=== PATIENT | female | born 1995 | race Hispanic/Latino ===

== ENCOUNTER 2017-09-08 15:03 | Observation (INO) | payer MEDICAID ==
[~2017-09-08] VITALS: Ht 154.9 cm; Wt 68.5 kg
[~2017-09-08 15:03] MED LIST: ACET1TAB12 PO; ESOM40CA54 PO
[2017-09-08 16:14] LABS: APPEARANCE,URINE Clear (CLEAR); BILIRUBIN,URINE Negative (NEGATIVE); COLOR,URINE Yellow (YELLOW); GLUCOSE, URINE (UA) Negative (NEGATIVE); KETONES,URINE Negative (NEGATIVE); LEUKOCYTE ESTERASE ,URINE Moderate (NEGATIVE); NITRATE,URINE Negative (NEGATIVE); OCCULT BLOOD,URINE Moderate (NEGATIVE); PROTEIN,URINE Negative (NEGATIVE); UROBILINOGEN,URINE 0.2 mg/dL (0.2-1.0)
[2017-09-08 16:22] LABS: BACTERIA,URINE None Seen /HPF (None Seen); SQUAMOUS EPITHELIAL CELL,UR 0-2 /LPF (0-2); WBC,URINE 0-1 /HPF (0-1)
== END 2017-09-08 16:55 | disposition home or self-care (01) ==
LOC: EDH 15:03 → LDH 15:04
DX: O26.893 Other specified pregnancy related conditions, third trimester (principal); R10.11 Right upper quadrant pain; O99.613 Diseases of the digestive system complicating pregnancy, third trimester; K59.00 Constipation, unspecified; Z3A.37 37 weeks gestation of pregnancy
CPT/HCPCS: 81001; 99285; G0378 ×2

== ENCOUNTER 2017-09-27 03:06 | Inpatient (IN) | payer MEDICAID ==
[~2017-09-27] VITALS: Ht 154.9 cm; Wt 69.9 kg
[2017-09-27] MEDS ORDERED: LACTATED RINGERS 1000ML 1,000 ML IV PRN (03:21)
[2017-09-27] MEDS ORDERED: EPHEDRINE SULFATE 50 MG/ML AMPULE IVP PRN ×2 (04:30→21:00)
[2017-09-27] MEDS ORDERED: NALOXONE HCL 0.4 MG/1 ML ML IV PRN (04:30)
[2017-09-27] MEDS ORDERED: LACTATED RINGERS 500 ML 500 ML IV PRN (04:30)
[2017-09-27] MEDS ORDERED: ROPIVACAINE 0.2%200ML EPIDURAL 200 ML EP SCH (04:30)
[2017-09-27] MEDS: MEPERIDINE-PF 50 MG/ML SYG IVP PRN ×2 (06:59→10:44)
[2017-09-27] MEDS: PROMETHAZINE HCL 25 MG/ML 1ML AMPULE IM PRN ×2 (07:00→22:51)
[2017-09-27] MEDS ORDERED: OXYTOCIN 10 USP UNITS/ML 20 UNIT in LACTATED RINGERS 1000ML 1,000 ML IV SCH (07:00)
[2017-09-27] MEDS ORDERED: LACTATED RINGERS 1000ML 1,000 ML IV ONE ×2 (07:34→19:55)
[2017-09-27] MEDS ORDERED: OXYTOCIN 10 USP UNITS/ML ONE ×2 (07:35→19:56)
[2017-09-27 07:52] LABS: HEMATOCRIT 34.1 % (36-48); MEAN CORPUSCULAR HEMOGLOBIN 29.9 pg (27.0-33.0); MEAN CORPUSCULAR VOLUME 87.9 fL (80-100); NUCLEATED RED BLOOD CELLS 0.1 % (0.0-0.19); PLATELET COUNT (AUTO) 275 K/uL (130-400); RED BLOOD CELL COUNT(AUTO) 3.88 MIL/uL (4.00-5.50); RED CELL DISTRIBUTION WIDTH 14.3 % (11.0-15.5); WHITE BLOOD COUNT (AUTO) 10.8 K/uL (4.8-10.8)
[2017-09-27] MEDS: OXYTOCIN-LR 20 UNITS/1000 ML 1,000 ML IV SCH (07:52)
[2017-09-27 08:06] LABS: RAPID PLASMA REAGIN NONREACTIVE (NONREACTIVE)
[2017-09-27] MEDS ORDERED: MEPERIDINE-PF 50 MG/ML SYG IVP SCH ×2 (10:30→12:15)
[2017-09-27] MEDS: PROMETHAZINE HCL 25 MG/ML 1ML AMPULE IM SCH (10:44)
[2017-09-27] MEDS ORDERED: PROMETHAZINE HCL 25 MG/ML 1ML AMPULE IM SCH (12:15)
[2017-09-27] MEDS: LACTATED RINGERS 1000ML 1,000 ML IV SCH (13:47)
[2017-09-27] MEDS ORDERED: CEFAZOLIN SODIUM 1 GM VIAL IVP PRN (18:30)
[2017-09-27] MEDS ORDERED: LACTATED RINGERS 1000ML 1,000 ML IV SCH (18:30)
[2017-09-27] MEDS ORDERED: CEFAZOLIN SODIUM 1 GM VIAL IVP ONE (18:55)
[2017-09-27] MEDS ORDERED: DURAMORPH PF1 MG/ML 10ML AMP IV ONE (18:59)
[2017-09-27] MEDS ORDERED: METHYLERGONOVINE MALEATE 0.2 MG/1 ML ML ONE (19:19)
[2017-09-27] MEDS ORDERED: OXYTOCIN-LR 20 UNITS/1000 ML 1,000 ML IV PRN (19:46)
[2017-09-27] MEDS ORDERED: CALDOLOR 800MG+NS 250ML 250 ML IV ONE (19:55)
[2017-09-27] MEDS ORDERED: DEXTROSE 5 %-0.45 % NACL 1,000 ML IV PRN (20:00)
[2017-09-27] MEDS ORDERED: LANOLIN 30GM OINTMENT TP PRN (20:00)
[2017-09-27] MEDS ORDERED: HYDROCODONE/ACETAMINOPHEN 5/325 MG TAB PO PRN ×4 (20:00→21:00)
[2017-09-27] MEDS ORDERED: BISACODYL 10 MG SUPP.RECT RC PRN (20:00)
[2017-09-27] MEDS ORDERED: PROMETHAZINE HCL 25 MG/ML 1ML AMPULE IM PRN ×2 (20:00→21:00)
[2017-09-27] MEDS ORDERED: DIPHENHYDRAMINE HCL 25 MG CAPSULE PO PRN (20:00)
[2017-09-27] MEDS ORDERED: SODIUM CHLORIDE 0.9% 10 ML VIAL IVP PRN (20:00)
[2017-09-27] MEDS ORDERED: ACETAMINOPHEN EXTRA STRENGTH 500 MG TABLET PO PRN (20:00)
[2017-09-27] MEDS ORDERED: MEASLES/MUMPS/RUBELLA VACCINE, LIVE 0.5 ML/VIAL SQ SCH (20:00)
[2017-09-27] MEDS ORDERED: DiphenhydrAMINE HCL 50 MG/ML VIAL IVP PRN (21:00)
[2017-09-27] MEDS ORDERED: MORPHINE SULFATE 2 MG/ML 1ML SYG IVP PRN (21:00)
[2017-09-27] MEDS ORDERED: ONDANSETRON HCL MDV 20ML 2 MG/ML VIAL IVP PRN ×2 (21:00)
[2017-09-27] MEDS ORDERED: ONDANSETRON HCL 4 MG/2 ML 8 MG in SODIUM CHLORIDE 0.9% 50 ML IVP NR (21:00)
[2017-09-27] MEDS ORDERED: NALOXONE HCL 0.4 MG/1 ML ML IVP PRN ×2 (21:00)
[2017-09-27] MEDS ORDERED: METOCLOPRAMIDE 10 MG/2 ML VIAL IVP PRN (21:00)
[2017-09-27] MEDS: MEPERIDINE-PF 75 MG/ML SYG IM PRN (22:29)
[2017-09-27 22:35] VITALS: BP 109/69
[2017-09-27] MEDS ORDERED: PREN-196 PO (22:56)
[2017-09-27 23:51] VITALS: BP 107/70
[2017-09-28] MEDS: OXYTOCIN-LR 20 UNITS/1000 ML 1,000 ML IV SCH (03:30)
[2017-09-28] MEDS: CALDOLOR 800MG+NS 250ML 250 ML IV SCH ×2 (03:49→12:00)
[2017-09-28] MEDS: DIPH,PERTUSS(ACELL),TET VAC/PF 0.5 ML VIAL IM SCH (03:50)
[2017-09-28 03:58] VITALS: BP 101/58
[2017-09-28] MEDS: MEPERIDINE-PF 75 MG/ML SYG IM PRN (03:58)
[2017-09-28 06:48] LABS: HEMATOCRIT 29.8 % (36-48); MEAN CORPUSCULAR HEMOGLOBIN 30.2 pg (27.0-33.0); MEAN CORPUSCULAR HGB CONC 34.5 g/dL (32.0-36.0); MEAN CORPUSCULAR VOLUME 87.7 fL (80-100); PLATELET COUNT (AUTO) 236 K/uL (130-400); RED CELL DISTRIBUTION WIDTH 14.3 % (11.0-15.5); WHITE BLOOD COUNT (AUTO) 18.5 K/uL (4.8-10.8)
[2017-09-28 08:02] LABS: HEPATITIS Bs ANTIGEN SCREEN P Negative (Negative)
[2017-09-28 08:21] VITALS: BP 108/64
[2017-09-28] MEDS: DOCUSATE SODIUM 100 MG CAP PO SCH ×2 (08:30→21:52)
[2017-09-28] MEDS: LIDOCAINE 5% TOPICAL PATCH TP SCH (08:30)
[2017-09-28] MEDS: SIMETHICONE 80 MG TAB.CHEW PO PRN ×4 (08:30→21:52)
[2017-09-28] MEDS: ACETAMINOPHEN-CODEINE 300/30MG TAB PO PRN ×3 (08:33→19:40)
[2017-09-28] MEDS: IBUPROFEN 800 MG TAB PO SCH ×2 (10:15→18:28)
[2017-09-28] MEDS: PROMETHAZINE HCL 25 MG/ML 1ML AMPULE IM SCH (10:30)
[2017-09-28] MEDS: LACTATED RINGERS 1000ML 1,000 ML IV SCH (11:30)
[2017-09-28 13:33] VITALS: BP 101/60
[2017-09-28 15:35] VITALS: BP 100/54
[2017-09-28 19:26] VITALS: BP 98/72
[2017-09-28 23:10] VITALS: BP 102/62
[2017-09-29] MEDS: IBUPROFEN 800 MG TAB PO SCH ×2 (02:31→09:08)
[2017-09-29 03:16] VITALS: BP 105/57
[2017-09-29] MEDS: LACTATED RINGERS 1000ML 1,000 ML IV SCH (03:30)
[2017-09-29] MEDS: ACETAMINOPHEN-CODEINE 300/30MG TAB PO PRN (04:36)
[2017-09-29] MEDS: DIPH,PERTUSS(ACELL),TET VAC/PF 0.5 ML VIAL IM SCH (05:45)
[2017-09-29 07:31] VITALS: BP 117/67
[2017-09-29] MEDS: SIMETHICONE 80 MG TAB.CHEW PO PRN (09:07)
[2017-09-29] MEDS: LIDOCAINE 5% TOPICAL PATCH TP SCH (09:07)
[2017-09-29] MEDS: DOCUSATE SODIUM 100 MG CAP PO SCH (09:07)
[2017-09-29 11:17] VITALS: BP 107/54
[2017-09-29] MEDS ORDERED: DOCU240C80 PO (12:18)
[2017-09-29] MEDS ORDERED: MO8B PO (12:19)
[2017-09-29] MEDS ORDERED: ACET1TAB12 PO (12:20)
== END 2017-09-29 14:00 | disposition home or self-care (01) | DRG 540 ==
LOC: EDH 03:06 → LDH 03:07 → OBSVTOIN 03:07 → LDH 09:08 → WSH 22:40
PROC: 3E0234Z Introduction of Serum, Toxoid and Vaccine into Muscle, Percutaneous Approach (ICD-10-PCS; 2017-09-27)
PROC: 3E0234Z Introduction of Serum, Toxoid and Vaccine into Muscle, Percutaneous Approach (ICD-10-PCS; 2017-09-27)
PROC: 10D00Z1 Extraction of Products of Conception, Low, Open Approach (ICD-10-PCS; principal; 2017-09-27 18:30)
DX: O62.0 Primary inadequate contractions (principal); O69.81X0 Labor and delivery complicated by cord around neck, without compression, not applicable or unspecified; O77.0 Labor and delivery complicated by meconium in amniotic fluid; Z37.0 Single live birth; Z3A.40 40 weeks gestation of pregnancy; Z23 Encounter for immunization
CPT/HCPCS: 36415; 59510; 85027; 86592; 86701; 86850; 86900; 86901; 87340; 87390; 90715; A4344; A4606; J0690; J1741; J2175; J2210; J2274; J2550; J2590; J7120

== ENCOUNTER 2017-09-30 02:42 | Emergency (ER) | payer MEDICAID ==
[~2017-09-30 02:42] MED LIST changes: +DOCU240C80 PO; -ESOM40CA54 PO; +MO8B PO; +PREN-196 PO
[2017-09-30 03:33] LABS: BASOPHILS % (AUTO) 0.3 % (0.0-5.0); EOSINOPHILS % (AUTO) 0.5 % (0.0-8.0); HEMATOCRIT 29.4 % (36-48); LYMPHOCYTES % (AUTO) 8.5 % (21.0-51.0); MEAN CORPUSCULAR HEMOGLOBIN 29.5 pg (27.0-33.0); MEAN CORPUSCULAR HGB CONC 33.4 g/dL (32.0-36.0); MEAN CORPUSCULAR VOLUME 88.1 fL (80-100); MONOCYTES % (AUTO) 5.4 % (3.0-13.0); NEUTROPHILS % (AUTO) 85.3 % (40.0-77.0); PLATELET COUNT (AUTO) 269 K/uL (130-400); RED BLOOD CELL COUNT(AUTO) 3.34 MIL/uL (4.00-5.50); RED CELL DISTRIBUTION WIDTH 14.6 % (11.0-15.5); WHITE BLOOD COUNT (AUTO) 16.8 K/uL (4.8-10.8)
[2017-09-30 03:34] LABS: APPEARANCE,URINE Clear (CLEAR); BILIRUBIN,URINE Negative (NEGATIVE); COLOR,URINE Yellow (YELLOW); GLUCOSE, URINE (UA) Negative (NEGATIVE); KETONES,URINE Negative (NEGATIVE); LEUKOCYTE ESTERASE ,URINE Moderate (NEGATIVE); NITRATE,URINE Negative (NEGATIVE); OCCULT BLOOD,URINE Moderate (NEGATIVE); PROTEIN,URINE Negative (NEGATIVE); UROBILINOGEN,URINE 0.2 mg/dL (0.2-1.0)
[2017-09-30 03:42] LABS: CREATININE 0.6 mg/dL (0.5-1.5); POTASSIUM 3.8 mmol/L (3.5-5.1)
[2017-09-30 03:48] LABS: ALBUMIN 2.5 g/dL (3.5-5.0); BILIRUBIN,TOTAL 0.2 mg/dL (0.2-1.0); TOTAL PROTEIN, SERUM 6.7 g/dL (6.0-8.3)
[2017-09-30 03:49] LABS: BACTERIA,URINE None Seen /HPF (None Seen); RBC,URINE 0-1 /HPF (0-1); SQUAMOUS EPITHELIAL CELL,UR Few /HPF (0-2); YEAST,URINE BUDDING Rare /HPF (None Seen)
[2017-09-30] MEDS ORDERED: ACETAMINOPHEN EXTRA STRENGTH 500 MG TABLET ONE (06:08)
[2017-09-30] MEDS ORDERED: CEPHALEXIN 500 MG CAPSULE ONE (06:12)
== END 2017-09-30 06:23 | disposition home or self-care (01) ==
LOC: EDH 02:42
DX: N39.0 Urinary tract infection, site not specified (principal)
CPT/HCPCS: 36415; 80053; 81001; 85025; 87088

== ENCOUNTER → 2019-03-28 | Outpatient (CLI) | payer MEDICAID ==
[~2019-03-28] MED LIST changes: +IBUP-1493 PO; -MO8B PO
== END | disposition home or self-care (01) ==
LOC: RAH 03-26 10:20
PROVIDERS: ATTEND Internal Medicine Gastroenterology
DX: R14.0 Abdominal distension (gaseous) (principal); R68.81 Early satiety
CPT/HCPCS: 78264; A9541